=== PATIENT | female | born 1975 | race Caucasian/White ===

== ENCOUNTER 2021-07-11 00:24 | Emergency (ER) | payer OTHER ==
[2021-07-11] MEDS ORDERED: ETODOLAC300 MG PO (01:55)
[2021-07-11] MEDS ORDERED: NORCO 5-325 TA1 EACH PO (01:55)
[2021-07-11] MEDS ORDERED: MEDROL 4MG DOSEP4 MG PO (01:55)
[2021-07-11] MEDS ORDERED: ROBAXIN750 MG PO (01:55)
== END 2021-07-11 02:25 | disposition home or self-care (01) ==
LOC: FER 00:24
DX: S46.811A Strain of other muscles, fascia and tendons at shoulder and upper arm level, right arm, initial encounter (principal); I10 Essential (primary) hypertension; Z88.1 Allergy status to other antibiotic agents; Z88.2 Allergy status to sulfonamides; Z79.899 Other long term (current) drug therapy; X50.0XXA Overexertion from strenuous movement or load, initial encounter; Y93.89 Activity, other specified; Y92.89 Other specified places as the place of occurrence of the external cause; Y99.0 Civilian activity done for income or pay
CPT/HCPCS: 99283; J7512